=== PATIENT | male | born 1950 | race Caucasian/White ===

== ENCOUNTER 2017-07-09 07:49 | Outpatient (CLI) | payer MEDICARE, OTHER ==
[2017-07-09 08:05] LABS: BASOPHILS # (AUTO) 0.1 10^3/uL (0.0-0.1); EOSINOPHILS # (AUTO) 0.1 10^3/uL (0.0-0.7); HCT - HEMATOCRIT 42.6 % (42.0-52.0); HGB - HEMOGLOBIN 14.5 g/dL (14.0-18.0); LYMPHOCYTES # (AUTO) 1.8 10^3/uL (1.5-3.5); LYMPHOCYTES % (AUTO) 31.4 %; MEAN CORPUSCULAR HEMOGLOBIN 29.1 pg (27.0-31.0); MEAN CORPUSCULAR VOLUME 85.5 fL (80.0-94.0); MEAN PLATELET VOLUME 7.8 fL (7.4-11.4); MONOCYTES # (AUTO) 0.4 10^3/uL (0.0-1.0); MONOCYTES % (AUTO) 7.6 %; NEUTROPHILS # (AUTO) 3.4 10^3/uL (1.5-6.6); RED BLOOD COUNT 4.98 10^6/uL (4.70-6.10); RED CELL DISTRIBUTION WIDTH 13.8 % (12.0-15.0); UNCORRECTED WHITE BLOOD COUNT 5.7 x10^3/uL; WHITE BLOOD COUNT 5.7 x10^3/uL (4.8-10.8)
[2017-07-09 08:23] LABS: ALBUMIN/GLOBULIN RATIO 1.7 (1.0-2.2); BILIRUBIN,TOTAL 0.7 mg/dL (0.2-1.0); BUN - BLOOD UREA NITROGEN 20 mg/dL (6-20); CALCIUM 9.3 mg/dL (8.5-10.3); CARBON DIOXIDE - CO2 26 mmol/L (21-32); CHLORIDE 104 mmol/L (101-111); CHOL/HDL RATIO 3.7 (<5.0); CHOLESTEROL 155 mg/dL; GFR - MDRD 75 (>89); GLUCOSE 118 mg/dL (70-100); HDL CHOLESTEROL 42 mg/dL; SODIUM 141 mmol/L (135-145); TOTAL PROTEIN 6.9 g/dL (6.7-8.2); TRIGLYCERIDES 142 mg/dL; VLDL CHOLESTEROL 28 mg/dL
[2017-07-09 08:25] LABS: HEMOGLOBIN A1C 0.65 g/dL
== END 2017-07-09 07:50 | disposition home or self-care (01) ==
LOC: LAB 07:49
PROVIDERS: ATTEND Nurse Practitioner Primary Care
DX: E88.81 Metabolic syndrome and other insulin resistance (principal); E78.5 Hyperlipidemia, unspecified; C61 Malignant neoplasm of prostate; I10 Essential (primary) hypertension; Z79.899 Other long term (current) drug therapy
CPT/HCPCS: 36415; 80053; 80061; 83036; 85025

== ENCOUNTER 2018-01-11 10:03 | Outpatient (CLI) | payer MEDICARE, OTHER ==
--- NOTE | 2018-01-12 01:54 | XRAY Report ---
Procedure Date: 01/11/2018 Accession Number: [id number] / [id number] Procedure: XR - Knee 3 View RT CPT Code: FULL RESULT: EXAM: RIGHT KNEE RADIOGRAPHY EXAM DATE: 01/11/2018 10:56 AM. CLINICAL HISTORY: KNEE JOINT PAIN,RIGHT. COMPARISON: None. TECHNIQUE: 3 views. FINDINGS: Bones: Normal. No fractures or bone lesions. Joints: Moderate osteoarthritis. Small joint effusion. Soft Tissues: Normal. No soft tissue swelling. IMPRESSION: Moderate osteoarthritis. No evidence of fracture. RADIA
== END 2018-01-11 10:04 | disposition home or self-care (01) ==
LOC: DI 10:03
PROVIDERS: ATTEND Nurse Practitioner Primary Care
DX: M17.11 Unilateral primary osteoarthritis, right knee (principal)

== ENCOUNTER 2018-03-01 09:23 | Outpatient (CLI) | payer MEDICARE, OTHER | END 2018-03-01 09:24 | disposition home or self-care (01) | LOC: LAB 09:23 | PROVIDERS: ATTEND Urology | DX: C61 Malignant neoplasm of prostate (principal) | CPT/HCPCS: 36415; 84153 ==

== ENCOUNTER 2018-07-05 08:07 | Outpatient (CLI) | payer MEDICARE, OTHER ==
[2018-07-05 08:37] LABS: BASOPHILS % (AUTO) 0.6 %; EOSINOPHILS % (AUTO) 0.9 %; HGB - HEMOGLOBIN 14.4 g/dL (14.0-18.0); LYMPHOCYTES # (AUTO) 1.5 10^3/uL (1.5-3.5); LYMPHOCYTES % (AUTO) 31.3 %; MEAN CORPUSCULAR HEMOGLOBIN 28.3 pg (27.0-31.0); MEAN CORPUSCULAR HGB CONC 33.7 g/dL (32.0-36.0); MEAN PLATELET VOLUME 7.8 fL (7.4-11.4); MONOCYTES # (AUTO) 0.3 10^3/uL (0.0-1.0); MONOCYTES % (AUTO) 7.2 %; NEUTROPHILS # (AUTO) 2.9 10^3/uL (1.5-6.6); PLT - PLATELET COUNT 220 10^3/uL (130-450); RED CELL DISTRIBUTION WIDTH 13.5 % (12.0-15.0); WHITE BLOOD COUNT 4.8 x10^3/uL (4.8-10.8)
[2018-07-05 08:53] LABS: HB2 TOTAL 15.9 g/dL; HEMOGLOBIN A1C 0.66 g/dL; HEMOGLOBIN A1C % 5.9 % (4.6-6.2)
[2018-07-05 09:01] LABS: ALBUMIN 4.2 g/dL (3.2-5.5); ALBUMIN/GLOBULIN RATIO 1.8 (1.0-2.2); ALKALINE PHOSPHATASE 67 IU/L (42-121); ALT ALANINE AMINOTRANSFERASE 30 IU/L (10-60); AST ASPARTATE AMINOTRANSFERASE 27 IU/L (10-42); BILIRUBIN,TOTAL 0.9 mg/dL (0.2-1.0); BUN - BLOOD UREA NITROGEN 19 mg/dL (6-20); CALCIUM 9.3 mg/dL (8.5-10.3); CARBON DIOXIDE - CO2 25 mmol/L (21-32); CHLORIDE 107 mmol/L (101-111); CHOL/HDL RATIO 4.1 (<5.0); CHOLESTEROL 158 mg/dL; CREATININE 1.1 mg/dL (0.6-1.2); GFR - MDRD 67 (>89); GLUCOSE 126 mg/dL (70-100); HDL CHOLESTEROL 39 mg/dL; LDL CHOLESTEROL,CALCULATED 84 mg/dL; LDL/HDL RATIO 2.2 (<3.6); SODIUM 139 mmol/L (135-145); TOTAL PROTEIN 6.6 g/dL (6.7-8.2); VLDL CHOLESTEROL 35 mg/dL
== END 2018-07-05 08:08 | disposition home or self-care (01) ==
LOC: LAB 08:07
PROVIDERS: ATTEND Nurse Practitioner Primary Care
DX: R73.01 Impaired fasting glucose (principal); Z79.899 Other long term (current) drug therapy; E88.81 Metabolic syndrome and other insulin resistance; I10 Essential (primary) hypertension; E78.5 Hyperlipidemia, unspecified
CPT/HCPCS: 36415; 80053; 80061; 83036; 83721; 84443; 85025

== ENCOUNTER 2018-09-08 09:30 | Outpatient (CLI) | payer MEDICARE, OTHER ==
[2018-09-08 11:56] LABS: TESTOSTERONE, TOTAL < 10 ng/dL (350-720)
== END 2018-09-08 09:31 | disposition home or self-care (01) ==
LOC: LAB 09:30
PROVIDERS: ATTEND Urology
DX: C61 Malignant neoplasm of prostate (principal)
CPT/HCPCS: 36415; 84153; 84403

== ENCOUNTER 2018-10-18 08:19 | Outpatient (CLI) | payer MEDICARE, OTHER ==
[2018-10-18 09:51] LABS: HB2 TOTAL 14.7 g/dL; HEMOGLOBIN A1C 0.59 g/dL; HEMOGLOBIN A1C % 5.8 % (4.6-6.2)
== END 2018-10-18 08:20 | disposition home or self-care (01) ==
LOC: LAB 08:19
PROVIDERS: ATTEND Family Medicine
DX: E88.81 Metabolic syndrome and other insulin resistance (principal); E11.9 Type 2 diabetes mellitus without complications
CPT/HCPCS: 36415; 82947; 83036

== ENCOUNTER 2020-07-02 08:18 | Outpatient (CLI) | payer MEDICARE, OTHER ==
[2020-07-02 08:53] LABS: BASOPHILS # (AUTO) 0.1 10^3/uL (0.0-0.1); EOSINOPHILS % (AUTO) 0.8 %; HGB - HEMOGLOBIN 14.2 g/dL (14.0-18.0); LYMPHOCYTES # (AUTO) 1.8 10^3/uL (1.5-3.5); LYMPHOCYTES % (AUTO) 35.6 %; MEAN CORPUSCULAR HEMOGLOBIN 29.4 pg (27.0-31.0); MEAN CORPUSCULAR HGB CONC 33.1 g/dL (32.0-36.0); MEAN CORPUSCULAR VOLUME 88.8 fL (80.0-94.0); MEAN PLATELET VOLUME 9.2 fL (7.4-11.4); MONOCYTES # (AUTO) 0.4 10^3/uL (0.0-1.0); MONOCYTES % (AUTO) 7.9 %; NEUTROPHILS # (AUTO) 2.7 10^3/uL (1.5-6.6); NEUTROPHILS % (AUTO) 54.5 %; PLT - PLATELET COUNT 235 10^3/uL (130-450); RED BLOOD COUNT 4.83 10^6/uL (4.70-6.10); WHITE BLOOD COUNT 4.9 x10^3/uL (4.8-10.8)
[2020-07-02 09:11] LABS: ALBUMIN/GLOBULIN RATIO 1.6 (1.0-2.2); ALKALINE PHOSPHATASE 43 IU/L (42-121); ALT ALANINE AMINOTRANSFERASE 21 IU/L (10-60); AST ASPARTATE AMINOTRANSFERASE 19 IU/L (10-42); BILIRUBIN,TOTAL 1.1 mg/dL (0.2-1.0); BUN - BLOOD UREA NITROGEN 20 mg/dL (6-20); CARBON DIOXIDE - CO2 24 mmol/L (21-32); CHLORIDE 105 mmol/L (101-111); CHOL/HDL RATIO 3.3 (<5.0); CHOLESTEROL 148 mg/dL; GLUCOSE 113 mg/dL (70-100); HDL CHOLESTEROL 45 mg/dL; LDL CHOLESTEROL,CALCULATED 81 mg/dL; LDL/HDL RATIO 1.8 (<3.6); SODIUM 140 mmol/L (135-145); TOTAL PROTEIN 6.5 g/dL (6.7-8.2); VLDL CHOLESTEROL 22 mg/dL
[2020-07-02 09:58] LABS: PSA FREE < 0.005 ng/mL (0.16-2.81)
[2020-07-02 13:36] LABS: HEMOGLOBIN A1c% 5.8 % (4.27-6.07)
== END 2020-07-02 08:19 | disposition home or self-care (01) ==
LOC: LAB 08:18
PROVIDERS: ATTEND Family Medicine
DX: I10 Essential (primary) hypertension (principal); C61 Malignant neoplasm of prostate; E88.81 Metabolic syndrome and other insulin resistance; E78.5 Hyperlipidemia, unspecified; Z68.36 Body mass index [BMI] 36.0-36.9, adult
CPT/HCPCS: 36415; 80053; 80061; 83036; 83721; 84153; 84154; 84443; 85025

== ENCOUNTER 2021-05-07 23:10 | Emergency (ER) | payer MEDICARE, OTHER ==
[2021-05-07 23:38] LABS: BASOPHILS % (AUTO) 0.2 %; EOSINOPHILS % (AUTO) 0.1 %; HGB - HEMOGLOBIN 14.7 g/dL (14.0-18.0); LYMPHOCYTES # (AUTO) 1.6 10^3/uL (1.5-3.5); MEAN CORPUSCULAR HGB CONC 32.7 g/dL (32.0-36.0); MEAN CORPUSCULAR VOLUME 88.8 fL (80.0-94.0); MEAN PLATELET VOLUME 9.6 fL (7.4-11.4); MONOCYTES # (AUTO) 0.4 10^3/uL (0.0-1.0); NEUTROPHILS % (AUTO) 83.2 %; PLT - PLATELET COUNT 257 10^3/uL (130-450); RED BLOOD COUNT 5.07 10^6/uL (4.70-6.10); RED CELL DISTRIBUTION WIDTH 13.3 % (12.0-15.0); WHITE BLOOD COUNT 12.1 x10^3/uL (4.8-10.8)
[2021-05-07 23:39] LABS: BILIRUBIN,URINE NEGATIVE (NEGATIVE); GLUCOSE, URINE (UA) NEGATIVE (NEGATIVE); KETONES,URINE (UA) 15 mg/dL (NEGATIVE); LEUKOCYTE ESTERASE, URINE NEGATIVE (NEGATIVE); NITRITE,URINE NEGATIVE (NEGATIVE); OCCULT BLOOD,URINE MODERATE (NEGATIVE); PROTEIN,URINE NEGATIVE (NEGATIVE); UROBILINOGEN,URINE 0.2 (NORMAL) E.U./dL (NORMAL)
[2021-05-07 23:40] LABS: CLARITY,URINE CLEAR (CLEAR)
[2021-05-07] MEDS ORDERED: MORPHINE 2 MG/ML CARPUJECT IVP STA (23:45)
[2021-05-07] MEDS ORDERED: ONDANSETRON 4 MG/2 ML VIAL IVP STA (23:46)
[2021-05-07] MEDS ORDERED: SODIUM CHLORIDE 0.9% 1,000 ML IV STA (23:46)
[2021-05-07 23:47] LABS: BACTERIA,URINE None Seen /HPF (None Seen); SQUAMOUS EPITHELIAL CELL,UR RARE Squamous (<= Few); WBC,URINE 0-3 /HPF (0-3)
[2021-05-07 23:54] LABS: ALBUMIN 4.6 g/dL (3.2-5.5); ALBUMIN/GLOBULIN RATIO 1.5 (1.0-2.2); BILIRUBIN,TOTAL 0.9 mg/dL (0.2-1.0); CALCIUM 9.7 mg/dL (8.5-10.3); CREATININE 1.4 mg/dL (0.6-1.2); POTASSIUM 4.4 mmol/L (3.5-5.0); TOTAL PROTEIN 7.6 g/dL (6.7-8.2)
[2021-05-08] MEDS ORDERED: IOVERSOL 320 100 ML VIAL IVP ONE ×2 (00:07→00:42)
--- NOTE | 2021-05-08 01:11 | CT Report ---
PROCEDURE: Abdomen/Pelvis W INDICATIONS: hematuria, L flank pain CONTRAST: IV CONTRAST: Optiray 320 ml: 100 PO CONTRAST: *NO PO CONTRAST TECHNIQUE: After the administration of intravenous contrast, 5 mm thick sections acquired from the diaphragms to the symphysis. 5 mm thick coronal and sagittal reformats were acquired. For radiation dose reducti on, the following was used: automated exposure control, adjustment of mA and/or kV according to cee ent size. COMPARISON: None. FINDINGS: Image quality: Excellent. ABDOMEN: Lung bases: Lung bases are clear. Heart size is normal. Moderate hiatal hernia. Solid organs: Liver and spleen are normal in size and enhancement. Gallbladder is unremarkable. Bi liary system is non dilated. Pancreas enhances normally. No adrenal nodules. There is delayed enhan cement of the left kidney with mild perinephric fat stranding. Mild to moderate left hydronephrosis a nd hydroureter is seen. There is a 5 mm calculus at the left ureterovesicular junction. The right kid whitney is normal in size. There is no right-sided hydronephrosis. Peritoneum and bowel: Bowel loops demonstrate normal wall thickness and caliber. Normal appendix. N o free fluid or air. Nodes and vessels: No retroperitoneal or mesenteric adenopathy by size criteria. Aorta and inferior vena cava are normal in size. Mild to moderate aortic atherosclerosis. Miscellaneous: Small fat-containing periumbilical hernia. PELVIS: Genitourinary: Bladder wall thickness is normal. Surgical clips are seen in the pelvis from probable prior prostatectomy. Miscellaneous: There is a moderate left fat-containing ventral hernia. Bones: Numerous small sclerotic lesions are seen throughout the pelvic bones and included spine that are suspicious for osteoblastic metastases. No vertebral body compression fractures. IMPRESSION: 1.A 5 mm calculus is seen at the left ureterovesicular junction with mild to moderate left hydrourete ronephrosis, delayed nephrogram, and mild perinephric fat stranding. 2.Status post prostatectomy. A bulky mass is seen in the prostate bed. No inguinal lymphadenopathy. 3.Numerous small sclerotic lesions throughout the visualized osseous structures are suspicious for os teoblastic metastases. Recommend correlation with patient history. Nuclear medicine bone scan could b e obtained for further evaluation if indicated clinically. 4.Moderate hiatal hernia. 5.Moderate fat-containing left inguinal hernia. Reviewed by: Pino Robison MD on 05/08/2021 1:10 AM PDT Approved by: Pino Robison MD on 05/08/2021 1:10 AM PDT Station ID: [id number]
[2021-05-08] MEDS ORDERED: KETOROLAC 15 MG/ML VIAL IVP STA (01:14)
[2021-05-08] MEDS ORDERED: HYDROmorphone 1 MG/ML CARPUJECT IVP STA (01:15)
--- NOTE | 2021-05-08 01:18 | ED Physician Documentation ---
History of Present Illness - Stated complaint Stated Complaint: BACK PX, VOMITING - Chief complaint Chief Complaint: Abd Pain - History obtained from History obtained from: Patient - Additonal information Additional information: 71yM p/w flank pain X 3 days, progressively worsening, L sided, radiating to front, sharp, intermittent, a/w nbnb n/v X 4. denies fever, urinary sx. no hx kidney stones. former smoker Review of Systems Ten Systems: 10 systems reviewed and negative Constitutional: denies: Fever, Chills GI: reports: Nausea, Vomiting. denies: Abdominal Pain Musculoskeletal: reports: Back pain PD PAST MEDICAL HISTORY - Present Medications Home Medications: Ambulatory Orders Medication Instructions Recorded Confirmed Atorvastatin Calcium 40 mg PO DAILY 05/07/21 05/07/21 Enzalutamide [Xtandi] 40 mg PO DAILY 05/07/21 05/07/21 Leuprolide [Lupron] 05/07/21 Losartan Potassium [Cozaar] 100 mg PO DAILY 05/07/21 05/07/21 amLODIPine [Norvasc] 5 mg PO DAILY 05/07/21 05/07/21 Ondansetron Odt [Zofran Odt] 4 mg TL Q6H PRN #10 tablet 05/08/21 Oxycodone HCl/Acetaminophen 1 each PO Q4H PRN #10 tablet 05/08/21 [Percocet 10-325 mg Tablet] Tamsulosin [Flomax] 0.4 mg PO DAILY 14 Days #14 tab 05/08/21 - Allergies Allergies/Adverse Reactions: Allergies Allergy/AdvReac Type Severity Reaction Status Date / Time No Known Drug Allergies Allergy Verified 05/07/21 23:19 PD ED PE NORMAL - Vitals Vital signs reviewed: Yes - General General: Alert and oriented X 3, Other (mild to moderate distress) - HEENT HEENT: Atraumatic, PERRL, EOMI - Neck Neck: Supple, no meningeal sign - Cardiac Cardiac: RRR - Respiratory Respiratory: No respiratory distress, Clear bilaterally - Abdomen Abdomen: Non tender, Non distended - Back Back: Other (L CVA ttp) - Derm Derm: Normal color, Warm and dry - Extremities Extremities: No deformity - Neuro Neuro: Alert and oriented X 3 Results - Vitals Vitals: Vital Signs - 24 hr 05/07/21 05/07/21 05/08/21 23:16 23:43 01:55 Temperature 36.7 C 37.1 C 35.7 C L Heart Rate 57 L 72 83 Respiratory 20 18 16 Rate Blood Pressure 157/94 H 168/94 H 157/79 H O2 Saturation 98 97 97 Oxygen O2 Source Room air - Labs Labs: Laboratory Tests 05/07/21 05/07/21 05/07/21 23:32 23:32 23:32 WBC 12.1 H RBC 5.07 Hgb 14.7 Hct 45.0 MCV 88.8 MCH 29.0 MCHC 32.7 RDW 13.3 Plt Count 257 MPV 9.6 Neut # (Auto) 10.0 H Lymph # (Auto) 1.6 Pope # (Auto) 0.4 Eos # (Auto) 0.0 Baso # (Auto) 0.0 Absolute Nucleated RBC 0.00 Nucleated RBC % 0.0 Sodium 140 Potassium 4.4 Chloride 103 Carbon Dioxide 25 Anion Gap 12.0 BUN 28 H Creatinine 1.4 H Estimated GFR (MDRD) 50 L Glucose 191 H Calcium 9.7 Total Bilirubin 0.9 AST 22 ALT 21 Alkaline Phosphatase 57 Total Protein 7.6 Albumin 4.6 Globulin 3.0 Albumin/Globulin Ratio 1.5 Lipase 31 Urine Color YELLOW Urine Clarity CLEAR Urine pH 6.0 Ur Specific [place] 1.025 Urine Protein NEGATIVE Urine Glucose (UA) NEGATIVE Urine Ketones 15 H Urine Occult Blood MODERATE H Urine Nitrite NEGATIVE Urine Bilirubin NEGATIVE Urine Urobilinogen 0.2 (NORMAL) Ur Leukocyte Esterase NEGATIVE Urine RBC 11-25 H Urine WBC 0-3 Ur Squamous Epith Cells RARE Squamous Urine Bacteria None Seen Ur Microscopic Review INDICATED Urine Culture Comments NOT INDICATED PD MEDICAL DECISION MAKING - ED course ED course: d/w Dr. Orantes re: 5mm stone at UVJ with perinephric stranding and mild/moderate L hydro, WBC 12. pain well controlled, some possible mild deanna, no signs of UTI. Dr. Orantes recommends hydration, pain control, outpatient follow up. return precautions given. Departure - Departure Disposition: 01 Home, Self Care Clinical Impression: Nausea and vomiting, Flank pain, Kidney stone Condition: Good Instructions: Kidney Stones Prescriptions: Tamsulosin [Flomax] 0.4 mg PO DAILY 14 Days #14 tab Oxycodone HCl/Acetaminophen [Percocet 10-325 mg Tablet] 1 each PO Q4H PRN #10 tablet PRN Reason: Pain Ondansetron Odt [Zofran Odt] 4 mg TL Q6H PRN #10 tablet PRN Reason: Nausea / Vomiting Comments: You were seen in the emergency department for kidney stones. you have a 5mm stone at the end of the tube going between the kidney and bladder, meaning you will likely pass it soon. You need to stay well hydrated and take pain and nausea medicine until it passes. Please follow up with urology clinic this week. return to the emergency department if you have fever, uncontrolled pain any new or worsening symptoms or other concerns. Discharge Date/Time: 05/08/21 02:01
[2021-05-08 02:00] VITALS: BP 157/79
== END 2021-05-08 02:01 | disposition home or self-care (01) ==
LOC: ED 23:10
DX: N13.2 Hydronephrosis with renal and ureteral calculous obstruction (principal); N17.9 Acute kidney failure, unspecified; R11.2 Nausea with vomiting, unspecified; K40.90 Unilateral inguinal hernia, without obstruction or gangrene, not specified as recurrent; K44.9 Diaphragmatic hernia without obstruction or gangrene; Z87.891 Personal history of nicotine dependence
CPT/HCPCS: 36415; 74177; 80053; 81001; 83690; 85025; 96361; 96374; 96375; 99284; 99285; J1170; Q9967; 81003; 87086

== ENCOUNTER 2021-05-10 14:19 | Emergency (ER) | payer MEDICARE, OTHER ==
[2021-05-10 14:32] VITALS: BP 163/97
--- NOTE | 2021-05-10 14:41 | ED Physician Documentation ---
PD HPI ABD PAIN - Stated complaint Stated Complaint: BACK PX - Chief complaint Chief Complaint: Abd Pain - History obtained from History obtained from: Patient - Additional information Additional information: 71-year-old gentleman with known metastatic prostate cancer was seen recently for a left UVJ stone causing left flank pain. 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 The chart was reviewed and it shows that the prescription is still pending. Review of Systems Constitutional: denies: Fever, Chills Nose: reports: Reviewed and negative Throat: reports: Reviewed and negative Cardiac: reports: Reviewed and negative PD PAST MEDICAL HISTORY - Present Medications Home Medications: Ambulatory Orders Medication Instructions Recorded Confirmed Atorvastatin Calcium 40 mg PO DAILY 05/07/21 05/07/21 Enzalutamide [Xtandi] 40 mg PO DAILY 05/07/21 05/07/21 Leuprolide [Lupron] 05/07/21 Losartan Potassium [Cozaar] 100 mg PO DAILY 05/07/21 05/07/21 amLODIPine [Norvasc] 5 mg PO DAILY 05/07/21 05/07/21 Ondansetron Odt [Zofran Odt] 4 mg TL Q6H PRN #10 tablet 05/08/21 Oxycodone HCl/Acetaminophen 1 each PO Q4H PRN #10 tablet 05/08/21 [Percocet 10-325 mg Tablet] Tamsulosin [Flomax] 0.4 mg PO DAILY 14 Days #14 tab 05/08/21 oxyCODONE [Roxicodone] 5 mg PO Q4-6H PRN #20 tablet 05/10/21 - Allergies Allergies/Adverse Reactions: Allergies Allergy/AdvReac Type Severity Reaction Status Date / Time No Known Drug Allergies Allergy Verified 05/10/21 14:32 PD ED PE NORMAL - Vitals Vital signs reviewed: Yes - General General: Alert and oriented X 3, No acute distress - Abdomen Abdomen: Normal bowel sounds, Soft, Non tender - Neuro Neuro: Alert and oriented X 3, Normal speech Results - Vitals Vitals: Vital Signs - 24 hr 05/10/21 14:23 Temperature 36.5 C Heart Rate 77 Respiratory 18 Rate Blood Pressure 163/97 H O2 Saturation 97 Oxygen O2 Source Room air PD MEDICAL DECISION MAKING - ED course ED course: We discussed the CAT scan report, he was aware of the report and has a copy and plans to share it with his oncologist given the concern for metastatic disease. I am prescribing a short course of short-acting opioid pain medication for this patient. I have reviewed the patients PAPERHANGER PIPE and no concerning findings were noted. I have discussed that the opioids are for short term therapy only, and will not be refilled from the ED. Departure - Departure Disposition: 01 Home, Self Care Clinical Impression: Kidney stone Condition: Good Record reviewed to determine appropriate education?: Yes Instructions: ED Stone Renal W Colic Prescriptions: oxyCODONE [Roxicodone] 5 mg PO Q4-6H PRN #20 tablet PRN Reason: Pain Comments: [facility] Return for new or worsening symptoms. Discussed your CAT scan read with your oncologist.
== END 2021-05-10 14:53 | disposition home or self-care (01) ==
LOC: ED 14:19
DX: N20.1 Calculus of ureter (principal); C61 Malignant neoplasm of prostate; C79.9 Secondary malignant neoplasm of unspecified site
CPT/HCPCS: 99282; 99283

== ENCOUNTER 2021-06-04 08:14 | Outpatient (CLI) | payer MEDICARE, OTHER ==
--- NOTE | 2021-06-04 08:52 | CT Report ---
PROCEDURE: Abdomen/Pelvis WO INDICATIONS: FLANK PAIN TECHNIQUE: Noncontrast 5 mm thick sections acquired from the diaphragms to the symphysis. 5 mm coronal and sagi ttal reformats were then performed. For radiation dose reduction, the following was used: automated exposure control, adjustment of mA and/or kV according to patient size. COMPARISON: CT abdomen pelvis dated 05/08/2021 FINDINGS: ABDOMEN: Lung bases: No acute findings. Heart:Normal. Liver: Normal. Gallbladder: Unremarkable Bile ducts: Normal. Pancreas: Normal. Spleen: Normal. Adrenals: Normal. Kidneys and ureters: No hydronephrosis. No nephrolithiasis identified. Subcentimeter renal foci which are statistically cysts, however too to characterize accurately and therefore technically indetermin ate. Ureters appear decompressed. There is redemonstrated 4 mm calculus seen just above the left ureterove sical junction, grossly unchanged since 05/08/2021. Stomach and duodenum: Moderate hiatal hernia Bowel: Normal appendix. No evidence of bowel obstruction. Other: No free fluid or air. Abdominal nodes: Mildly enlarged retroperitoneal lymph node adjacent to the right adrenal gland measu ring approximately 1.6 x 1.0 cm previously 2.1 x 1.2 cm. Aorta: Normal in sizel. IVC: Normal. Ventral wall: Normal. PELVIS: Bladder and reproductive: Status post prostatectomy. Bladder grossly unremarkable although partially decompressed. Pelvic nodes: No definite pathologically enlarged pelvic lymphadenopathy. Inguinal regions: Fat-containing left inguinal hernia. Bones: Numerous sclerotic osseous metastases as before. IMPRESSION: Overall, unchanged appearance of 4 mm calculus just above the left ureterovesical junction No hydronephrosis Mildly enlarged retroperitoneal lymph node as above, suspicious for metastatic lymphadenopathy althou gh grossly unchanged to minimally decreased, as detailed above. Moderate hiatal hernia Left fat-containing inguinal hernia Widespread osseous metastases as before. Reviewed by: Lalo Raygoza MD on 06/04/2021 8:50 AM PST Approved by: Lalo Raygoza MD on 06/04/2021 8:50 AM PST Station ID: [id number]
== END 2021-06-04 08:15 | disposition home or self-care (01) ==
LOC: DI 08:14
PROVIDERS: ATTEND Urology
DX: N20.1 Calculus of ureter (principal); K44.9 Diaphragmatic hernia without obstruction or gangrene; R59.0 Localized enlarged lymph nodes; K40.90 Unilateral inguinal hernia, without obstruction or gangrene, not specified as recurrent; C79.51 Secondary malignant neoplasm of bone

== ENCOUNTER 2021-07-01 07:48 | Outpatient (CLI) | payer MEDICARE, OTHER ==
[2021-07-01 08:18] LABS: BASOPHILS % (AUTO) 0.6 %; EOSINOPHILS # (AUTO) 0.1 10^3/uL (0.0-0.7); HGB - HEMOGLOBIN 14.5 g/dL (14.0-18.0); LYMPHOCYTES # (AUTO) 1.9 10^3/uL (1.5-3.5); LYMPHOCYTES % (AUTO) 36.7 %; MEAN CORPUSCULAR HEMOGLOBIN 29.1 pg (27.0-31.0); MEAN CORPUSCULAR VOLUME 88.4 fL (80.0-94.0); MEAN PLATELET VOLUME 9.6 fL (7.4-11.4); MONOCYTES # (AUTO) 0.4 10^3/uL (0.0-1.0); MONOCYTES % (AUTO) 7.3 %; NEUTROPHILS # (AUTO) 2.8 10^3/uL (1.5-6.6); PLT - PLATELET COUNT 244 10^3/uL (130-450); RED BLOOD COUNT 4.98 10^6/uL (4.70-6.10); RED CELL DISTRIBUTION WIDTH 13.4 % (12.0-15.0); WHITE BLOOD COUNT 5.1 x10^3/uL (4.8-10.8)
[2021-07-01 08:25] LABS: ALBUMIN 4.1 g/dL (3.2-5.5); ALBUMIN/GLOBULIN RATIO 1.5 (1.0-2.2); ALKALINE PHOSPHATASE 49 IU/L (42-121); ALT ALANINE AMINOTRANSFERASE 19 IU/L (10-60); AST ASPARTATE AMINOTRANSFERASE 19 IU/L (10-42); BILIRUBIN,TOTAL 0.8 mg/dL (0.2-1.0); BUN - BLOOD UREA NITROGEN 17 mg/dL (6-20); CALCIUM 9.2 mg/dL (8.5-10.3); CARBON DIOXIDE - CO2 27 mmol/L (21-32); CHLORIDE 101 mmol/L (101-111); CHOL/HDL RATIO 3.2 (<5.0); CHOLESTEROL 154 mg/dL; GFR - MDRD 74 (>89); GLUCOSE 123 mg/dL (70-100); HDL CHOLESTEROL 48 mg/dL; LDL CHOLESTEROL,CALCULATED 78 mg/dL; LDL/HDL RATIO 1.6 (<3.6); POTASSIUM 4.3 mmol/L (3.5-5.0); SODIUM 138 mmol/L (135-145); TOTAL PROTEIN 6.8 g/dL (6.7-8.2); TRIGLYCERIDES 139 mg/dL; VLDL CHOLESTEROL 28 mg/dL
[2021-07-01 08:36] LABS: THYROID STIMULATING HORMONE 3.27 uIU/mL (0.34-5.60)
[2021-07-01 13:34] LABS: ESTIMATED AVERAGE GLUCOSE 120 mg/dL (70-100); HEMOGLOBIN A1c% 5.8 % (4.27-6.07)
== END 2021-07-01 07:49 | disposition home or self-care (01) ==
LOC: LAB 07:48
PROVIDERS: ATTEND Family Medicine
DX: R60.9 Edema, unspecified (principal); Z68.36 Body mass index [BMI] 36.0-36.9, adult; C61 Malignant neoplasm of prostate; I10 Essential (primary) hypertension; E78.5 Hyperlipidemia, unspecified; E88.81 Metabolic syndrome and other insulin resistance
CPT/HCPCS: 36415; 80053; 80061; 83036; 83721; 84153; 84443; 85025

== ENCOUNTER 2021-12-16 07:44 | Outpatient (CLI) | payer MEDICARE, OTHER ==
--- NOTE | 2021-12-16 14:28 | CT Report ---
PROCEDURE: Abdomen/Pelvis WO INDICATIONS: LEFT URETERAL CALCULUS TECHNIQUE: Noncontrast 5 mm thick sections acquired from the diaphragms to the symphysis. 5 mm coronal and sagi ttal reformats were then performed. For radiation dose reduction, the following was used: automated exposure control, adjustment of mA and/or kV according to patient size. COMPARISON: CT abdomen pelvis 06/04/2021, 05/08/2021 FINDINGS: Image quality: Excellent. ABDOMEN: Lung bases: 3 mm right lower lobe nodule series it is unchanged since 202. 4 image 14. Heart size is normal. Solid organs: Liver and spleen are normal in size. Gallbladder is unremarkable Pancreas is normal in contours. No adrenal nodules. Kidneys are mildly atrophic in size, without hydronephrosis or nep hrolithiasis. There is a distal left ureteral calculus measuring 4 mm. It is approximately 1.5 cm pr oximal to the left ureterovesicular junction. Peritoneum and bowel: Unenhanced bowel loops demonstrate normal wall thickness and caliber. No free fluid or air. Prominent hiatal hernia. Nodes and vessels: Stable 1.4 cm retroperitoneal lymph node medial to the right adrenal gland on seri es 3 image 24, unchanged.. Aorta and inferior vena cava are normal in caliber. Miscellaneous: No ventral hernias. PELVIS: Genitourinary: Bladder wall thickness is normal. Surgical changes reflecting prostatectomy are pres ent. Miscellaneous: Fat-containing left inguinal hernia is present, more prominent when compared to prior exam. No incarceration or strangulation. No obstruction. Bones: No suspicious bony lesions. No vertebral body compression fractures. IMPRESSION: Nonobstructing distal left ureteral calculus. Stable 1.4 cm retroperitoneal lymph node. Stable 3 mm right lower lobe nodule since 2020. Reviewed by: Miriam Wolf MD on 12/16/2021 2:27 PM PDT Approved by: Miriam Wolf MD on 12/16/2021 2:27 PM PDT Station ID: [id number]
== END 2021-12-16 07:45 | disposition home or self-care (01) ==
LOC: DI 07:44
PROVIDERS: ATTEND Urology
DX: N20.1 Calculus of ureter (principal); R91.1 Solitary pulmonary nodule

== ENCOUNTER 2021-12-24 08:02 | Outpatient (CLI) | payer MEDICARE, OTHER ==
[2021-12-24 08:34] LABS: BASOPHILS % (AUTO) 0.6 %; EOSINOPHILS % (AUTO) 0.6 %; HCT - HEMATOCRIT 43.7 % (42.0-52.0); HGB - HEMOGLOBIN 14.7 g/dL (14.0-18.0); LYMPHOCYTES # (AUTO) 1.9 10^3/uL (1.5-3.5); LYMPHOCYTES % (AUTO) 38.3 %; MEAN CORPUSCULAR HEMOGLOBIN 29.5 pg (27.0-31.0); MEAN CORPUSCULAR HGB CONC 33.6 g/dL (32.0-36.0); MEAN CORPUSCULAR VOLUME 87.8 fL (80.0-94.0); MEAN PLATELET VOLUME 9.2 fL (7.4-11.4); MONOCYTES # (AUTO) 0.4 10^3/uL (0.0-1.0); MONOCYTES % (AUTO) 6.9 %; NEUTROPHILS # (AUTO) 2.7 10^3/uL (1.5-6.6); NEUTROPHILS % (AUTO) 53.2 %; PLT - PLATELET COUNT 248 10^3/uL (130-450); RED BLOOD COUNT 4.98 10^6/uL (4.70-6.10); RED CELL DISTRIBUTION WIDTH 13.2 % (12.0-15.0); WHITE BLOOD COUNT 5.1 x10^3/uL (4.8-10.8)
[2021-12-24 08:49] LABS: ALBUMIN 4.1 g/dL (3.2-5.5); ALBUMIN/GLOBULIN RATIO 1.5 (1.0-2.2); ALKALINE PHOSPHATASE 43 IU/L (42-121); ALT ALANINE AMINOTRANSFERASE 20 IU/L (10-60); AST ASPARTATE AMINOTRANSFERASE 20 IU/L (10-42); BILIRUBIN,TOTAL 1.1 mg/dL (0.2-1.0); BUN - BLOOD UREA NITROGEN 22 mg/dL (6-20); CALCIUM 9.5 mg/dL (8.5-10.3); CARBON DIOXIDE - CO2 27 mmol/L (21-32); CHLORIDE 102 mmol/L (101-111); CHOL/HDL RATIO 3.3 (<5.0); CHOLESTEROL 166 mg/dL; GFR - MDRD 74 (>89); GLUCOSE 117 mg/dL (70-100); HDL CHOLESTEROL 50 mg/dL; LDL CHOLESTEROL,CALCULATED 93 mg/dL; LDL/HDL RATIO 1.9 (<3.6); POTASSIUM 4.1 mmol/L (3.5-5.0); SODIUM 139 mmol/L (135-145); TOTAL PROTEIN 6.9 g/dL (6.7-8.2); TRIGLYCERIDES 114 mg/dL; VLDL CHOLESTEROL 23 mg/dL
[2021-12-24 09:00] LABS: THYROID STIMULATING HORMONE 2.25 uIU/mL (0.34-5.60)
== END 2021-12-24 08:03 | disposition home or self-care (01) ==
LOC: LAB 08:02
PROVIDERS: ATTEND Family Medicine
DX: I10 Essential (primary) hypertension (principal); R60.9 Edema, unspecified; M17.11 Unilateral primary osteoarthritis, right knee; E88.81 Metabolic syndrome and other insulin resistance; E78.5 Hyperlipidemia, unspecified
CPT/HCPCS: 36415; 80053; 80061; 83721; 84443; 85025

== ENCOUNTER 2022-12-31 07:36 | Outpatient (CLI) | payer MEDICARE, OTHER ==
[2022-12-31 08:10] LABS: CALCIUM 9.2 mg/dL (8.5-10.3); POTASSIUM 3.9 mmol/L (3.5-5.0)
[2022-12-31 08:21] LABS: CREATININE,URINE 257.6 mg/dL; MICROALBUM/CREATININE RATIO,UR 4.3 ug/mg (<30.0); MICROALBUMIN,URINE 1.1 mg/dL (0-300.0)
[2022-12-31 09:36] LABS: ESTIMATED AVERAGE GLUCOSE 126 mg/dL (70-100)
== END 2022-12-31 07:37 | disposition home or self-care (01) ==
LOC: LAB 07:36
PROVIDERS: ATTEND Family Medicine
DX: I10 Essential (primary) hypertension (principal); R60.9 Edema, unspecified; E88.81 Metabolic syndrome and other insulin resistance
CPT/HCPCS: 36415; 80048; 82043; 82570; 83036

== ENCOUNTER 2023-10-26 07:58 | Outpatient (CLI) | payer MEDICARE, OTHER ==
[2023-10-26 08:23] LABS: CALCIUM 9.8 mg/dL (8.5-10.3); CREATININE 1.1 mg/dL (0.6-1.3); POTASSIUM 3.9 mmol/L (3.5-4.5)
[2023-10-26 09:59] LABS: ESTIMATED AVERAGE GLUCOSE 120 mg/dL (70-100); HEMOGLOBIN A1c% 5.8 % (4.27-6.07)
== END 2023-10-26 07:59 | disposition home or self-care (01) ==
LOC: LAB 07:58
PROVIDERS: ATTEND Family Medicine
DX: E88.810 Metabolic syndrome (principal)
CPT/HCPCS: 36415; 80048; 83036